=== PATIENT | male | born 1940 | race Caucasian/White ===

== ENCOUNTER → 2020-10-29 19:02 | Outpatient (ROUT) | payer MEDICARE, OTHER, SELFPAY ==
[2020-10-29 19:13] LABS: Add Manual Diff / Slide Review NO; Basophils Absolute Auto 0 /uL (0-100); Basophils Percent Auto 0.7 % (0-2); Eosinophils Absolute Auto 100 /uL (0-450); Eosinophils Percent Auto 1.4 % (2-4); Hematocrit 39.9 % (41-53); Hemoglobin 13.2 g/dL (13.5-17.5); Lymphocytes Absolute Auto 900 /uL (1100-4500); Lymphocytes Percent Auto 16.1 % (25-40); Mean Corpuscular HGB Conc 33.1 % (30-36); Mean Corpuscular Volume 84.6 fL (80-100); Monocytes Absolute Auto 400 /uL (0-900); Monocytes Percent Auto 6.6 % (3-14); Neutrophils Absolute Auto 4400 /uL (1500-7000); Neutrophils Percent Auto 75.2 % (50-75); Platelet Count 183 X10^3/uL (150-400); Red Blood Cell Count 4.71 X10^6/uL (4.5-5.9); Red Cell Distribution Width 13.2 % (11.6-14.8); White Blood Cell Count 5.8 X10^3/uL (4.5-11.0)
[2020-10-29 19:26] LABS: Hemoglobin A1C% w Est Avg Glu 5.7 % (4.0-6.0)
[2020-10-29 19:31] LABS: Alanine Aminotransferase 20 IU/L (<50); Albumin 4.2 g/dL (3.5-5.0); Albumin Globulin Ratio 1.8 (1.0-2.8); Alkaline Phosphatase 78 U/L (38-126); Aspartate Aminotransferase 27 IU/L (17-59); BUN Creatinine Ratio 18.1 (6-22); Bilirubin Total 0.4 mg/dL (0.2-1.3); Blood Urea Nitrogen 25 mg/dL (9-20); Carbon Dioxide 24 mmol/L (22-32); Chloride 104 mmol/L (98-107); Cholesterol 121 mg/dL (140-199); Estimated Glomerular Filt Rate 49.7 mL/min (>60); Globulin 2.4 g/dL (1.7-4.1); Glucose 164 mg/dL (80-110); HDL Cholesterol 80 mg/dL (40-60); LDL Cholesterol Calculated 22 mg/dL (<100); Potassium 4.4 mmol/L (3.4-5.1); Sodium 133 mmol/L (137-145); Total Protein 6.6 g/dL (6.3-8.2); Triglycerides 95 mg/dL (35-150)
[2020-10-29 19:32] LABS: HEMOLYSIS < 15 (0-50)
[2020-10-29 20:22] LABS: Prostate Specific Antigen 0.858 ng/mL (0.10-4.00)
== END ==
PROVIDERS: Family Provider Internal Medicine; PCP Internal Medicine; Visit Provider Internal Medicine
DX: N18.30 Chronic kidney disease, stage 3 unspecified (principal); R73.01 Impaired fasting glucose; E78.2 Mixed hyperlipidemia; N40.0 Benign prostatic hyperplasia without lower urinary tract symptoms
CPT/HCPCS: 80053; 80061; 83036; 84153; 85025

== ENCOUNTER → 2022-07-11 09:03 | Outpatient (CLI) | payer MEDICARE, OTHER, SELFPAY ==
--- NOTE | 2022-07-11 | DI.CT.S_ITS ---
PROCEDURE: CT SINUS SCREEN WO CON INDICATIONS: Other specified disorders of nose and nasal sinuses TECHNIQUE: Noncontrast 3.0 mm axial images acquired from the frontal sinuses to the mid-sella, with coronal and sagittal reformats. For radiation dose reduction, the following was used: automated exposure control, adjustment of mA and/or kV according to patient size. COMPARISON: [facility], CT, HEAD WITHOUT CONTRAST, 08/30/2011, 7:16. FINDINGS: Image quality: Excellent. Maxillary Sinuses: No bony remodeling or destruction. Mild to moderate mucosal thickening is seen within the inferior aspects of both maxillary sinuses. There is a mucous retention cyst also seen within the inferior left maxillary sinus. Ethmoid Air Cells: No bony remodeling or destruction. Scattered mild mucosal thickening is seen within the ethmoid air cells. Sphenoid Sinuses: No bony remodeling or destruction. Sinuses are clear. Frontal Sinuses: No bony remodeling or destruction. At least mild mucosal thickening is seen involving the inferomedial frontal sinuses. Ostiomeatal Complexes: Ostiomeatal complexes are patent, yet they are constitutionally narrowed. Solo cells are seen on the right. Miscellaneous: Visualized intra-orbital contents are normal. No travon bullosa or paradoxical turbinate curvature. There is mild S shaped nasal septal deviation. Elongated styloid processes are partially seen on both sides. IMPRESSION: Paranasal sinus disease is seen, which is most prominent within the inferior maxillary sinuses. Constitutionally narrowed ostiomeatal complexes are seen. There is mild S shaped nasal septal deviation. Elongated styloid processes are incidentally noted. Please consider [place] syndrome. Dictated by: Jung Tipton M.D. on 07/11/2022 at 10:09 Approved by: Jung Tipton M.D. on 07/11/2022 at 10:12
== END ==
PROVIDERS: Family Provider Internal Medicine; PCP Internal Medicine; Referring Provider Otolaryngology; Visit Provider Otolaryngology
DX: J32.4 Chronic pansinusitis (principal); J34.89 Other specified disorders of nose and nasal sinuses; R09.82 Postnasal drip; J34.2 Deviated nasal septum
CPT/HCPCS: 70486

== ENCOUNTER → 2022-07-20 11:59 | Outpatient (CLI) | payer MEDICARE, OTHER, SELFPAY ==
[2022-07-20 13:45] LABS: Prostate Specific Antigen 1.02 ng/mL (0.10-4.00)
== END ==
PROVIDERS: Family Provider Internal Medicine; PCP Internal Medicine; Referring Provider Urology; Visit Provider Urology
DX: Z71.1 Person with feared health complaint in whom no diagnosis is made (principal)
CPT/HCPCS: 36415; 84153

== ENCOUNTER → 2022-10-12 07:42 | Outpatient (CLI) | payer MEDICARE, OTHER, SELFPAY ==
--- NOTE | 2022-10-12 | DI.CT.S_ITS ---
PROCEDURE: CT SINUS SCREEN WO CON INDICATIONS: NASAL OBSTRUCTION/CHRONIC PANSINUSITIS/POST NASAL DRIP TECHNIQUE: Noncontrast 3.0 mm axial images acquired from the frontal sinuses to the mid-sella, with coronal and sagittal reformats. For radiation dose reduction, the following was used: automated exposure control, adjustment of mA and/or kV according to patient size. COMPARISON: [facility], CT, CT SINUS SCREEN WO [facility], 07/11/2022, 9:07. FINDINGS: Image quality: Excellent. Maxillary Sinuses: Moderate mucosal thickening is seen within the inferior maxillary sinuses, left worse than right. There is demineralization of the medial everett of the maxillary sinuses. Ethmoid Air Cells: Moderate mucosal thickening is seen within the ethmoid air cells, left worse than right. There is demineralization many ethmoid air cell bony septations. Sphenoid Sinuses: Minimal to mild mucosal thickening is seen in involving the anterior sphenoid sinuses. No significant bony remodeling or destruction can be seen. Frontal Sinuses: Frul-xs-gqyhjjth mucosal thickening can be seen involving the inferior medial frontal sinuses. No significant bony remodeling is seen. Ostiomeatal Complexes: The ostiomeatal complexes are constitutionally narrowed and are further highly narrowed by soft tissue thickening, left worse than right. The ostiomeatal complexes are highly demineralized. Miscellaneous: Visualized intra-orbital contents are normal. No travon bullosa or paradoxical turbinate curvature. Mild S shaped nasal septal deviation is seen. IMPRESSION: Widespread paranasal sinus disease is seen, which is clearly worse than on the prior CT. Areas bony demineralization can be seen, which are consistent with chronic sinusitis. The ostiomeatal complexes are nearly completely occluded by soft tissue thickening and are also demineralized. Dictated by: Jung Tipton M.D. on 10/12/2022 at 9:21 Approved by: Jung Tipton M.D. on 10/12/2022 at 9:25
== END ==
PROVIDERS: Family Provider Internal Medicine; PCP Internal Medicine; Referring Provider Otolaryngology; Visit Provider Otolaryngology
DX: J32.4 Chronic pansinusitis (principal); J34.89 Other specified disorders of nose and nasal sinuses; R09.82 Postnasal drip
CPT/HCPCS: 70486

== ENCOUNTER → 2022-12-04 10:17 | Outpatient (CLI) | payer MEDICARE, OTHER, SELFPAY ==
[2022-12-04 11:52] LABS: Hematocrit 39.5 % (41-53); Hemoglobin 13.2 g/dL (13.5-17.5); Mean Corpuscular HGB Conc 33.5 % (30-36); Mean Corpuscular Volume 83.6 fL (80-100); Platelet Count 165 X10^3/uL (150-400); Red Blood Cell Count 4.72 X10^6/uL (4.5-5.9); Red Cell Distribution Width 14.3 % (11.6-14.8); White Blood Cell Count 4.6 X10^3/uL (4.5-11.0)
[2022-12-04 12:07] LABS: Alanine Aminotransferase 27 IU/L (<50); Albumin 3.9 g/dL (3.5-5.0); Albumin Globulin Ratio 1.4 (1.0-2.8); Alkaline Phosphatase 77 U/L (38-126); Aspartate Aminotransferase 33 IU/L (17-59); BUN Creatinine Ratio 13.9 (6-22); Bilirubin Total 0.6 mg/dL (0.2-1.3); Blood Urea Nitrogen 21 mg/dL (9-20); Calcium 9.4 mg/dL (8.4-10.2); Carbon Dioxide 25 mmol/L (22-32); Chloride 108 mmol/L (98-107); Cholesterol 128 mg/dL (140-199); Estimated Glomerular Filt Rate 46 mL/min (>60); Globulin 2.8 g/dL (1.7-4.1); Glucose 97 mg/dL (80-110); HDL Cholesterol 75 mg/dL (40-60); HEMOLYSIS < 15 (0-50); LDL Cholesterol Calculated 44 mg/dL (<100); Potassium 4.8 mmol/L (3.4-5.1); Sodium 138 mmol/L (137-145); Total Protein 6.7 g/dL (6.3-8.2); Triglycerides 45 mg/dL (35-150)
[2022-12-04 12:41] LABS: TSH w/ Reflex to FT4 0.37 uIU/mL (0.47-4.68)
[2022-12-04 12:55] LABS: Vitamin B12 481 pg/mL (239-931)
[2022-12-05 02:36] LABS: Labcorp Hemoglobin (Hb) A1c 5.8 % (4.8-5.6)
[2022-12-07 15:51] LABS: Albumin 3.9 g/dL (2.9-4.4); Alpha-1-Globulin 0.2 g/dL (0.0-0.4); Alpha-2-Globulin 0.6 g/dL (0.4-1.0); Gamma Globulin 0.8 g/dL (0.4-1.8); Globulin Total 2.3 g/dL (2.2-3.9); Protein, Total 6.2 g/dL (6.0-8.5)
== END ==
PROVIDERS: Family Provider Internal Medicine; PCP Internal Medicine; Referring Provider Internal Medicine; Visit Provider Internal Medicine
DX: C49.9 Malignant neoplasm of connective and soft tissue, unspecified (principal); I10 Essential (primary) hypertension; E78.2 Mixed hyperlipidemia; E53.8 Deficiency of other specified B group vitamins; G62.9 Polyneuropathy, unspecified; R73.01 Impaired fasting glucose; R77.8 Other specified abnormalities of plasma proteins
CPT/HCPCS: 36415; 80053; 80061; 82607; 83036; 84155; 84165; 84439; 84443; 85027

== ENCOUNTER → 2022-12-11 15:43 | Outpatient (CLI) | payer MEDICARE, OTHER, SELFPAY ==
[2022-12-11 16:42] LABS: Prolactin 12.9 ng/mL (3.7-17.9)
[2022-12-11 16:45] LABS: Free T3, Triiodothyronine Free 2.53 pg/mL (2.77-5.27); Free T4, Direct Thyroxine 0.84 ng/dL (0.78-2.19)
[2022-12-11 16:59] LABS: Thyroid Stimulating Hormone 0.313 uIU/mL (0.47-4.68)
[2022-12-11 17:02] LABS: Follicle Stimulating Hormone 19.3 mIU/mL; Luteinizing Hormone 14.1 mIU/mL
[2022-12-13 07:09] LABS: Thyroid Peroxidase Antibodies <9 IU/mL (0-34)
== END ==
PROVIDERS: Family Provider Internal Medicine; PCP Internal Medicine; Referring Provider Internal Medicine; Visit Provider Internal Medicine
DX: R79.89 Other specified abnormal findings of blood chemistry (principal); E23.7 Disorder of pituitary gland, unspecified
CPT/HCPCS: 36415; 83001; 83002; 84146; 84439; 84443; 84481; 86376

== ENCOUNTER → 2023-06-04 09:27 | Outpatient (CLI) | payer MEDICARE, OTHER, SELFPAY ==
[2023-06-04 13:59] LABS: BUN Creatinine Ratio 16.9 (6-22); Blood Urea Nitrogen 26 mg/dL (9-20); Calcium 10.2 mg/dL (8.4-10.2); Carbon Dioxide 25 mmol/L (22-32); Chloride 106 mmol/L (98-107); Estimated Glomerular Filt Rate 45 mL/min (>60); Glucose 112 mg/dL (80-110); HEMOLYSIS < 15 (0-50); Sodium 140 mmol/L (137-145)
[2023-06-04 14:32] LABS: TSH w/ Reflex to FT4 0.49 uIU/mL (0.47-4.68)
== END ==
PROVIDERS: Family Provider Internal Medicine; PCP Internal Medicine; Referring Provider Internal Medicine; Visit Provider Internal Medicine
DX: R79.89 Other specified abnormal findings of blood chemistry (principal); N18.32 Chronic kidney disease, stage 3b
CPT/HCPCS: 36415; 80048; 84443

== ENCOUNTER → 2023-07-20 14:00 | Outpatient (CLI) | payer MEDICARE, OTHER, SELFPAY | PROVIDERS: Family Provider Internal Medicine; PCP Internal Medicine; Referring Provider Urology; Visit Provider Urology | DX: Z12.5 Encounter for screening for malignant neoplasm of prostate (principal) | CPT/HCPCS: 36415; G0103 ==

== ENCOUNTER → 2023-08-17 13:52 | Outpatient (CLI) | payer MEDICARE, OTHER, SELFPAY ==
--- NOTE | 2023-08-17 | DI.CT.S_ITS ---
PROCEDURE: CT SINUS SCREEN WO CON INDICATIONS: CHRONIC PANSINUSITIS/NASAL OBSTRUCTION/PND TECHNIQUE: Noncontrast 3.0 mm axial images acquired from the frontal sinuses to the mid-sella, with coronal and sagittal reformats. For radiation dose reduction, the following was used: automated exposure control, adjustment of mA and/or kV according to patient size. COMPARISON: [facility], CT, CT SINUS SCREEN WO CON, 10/12/2022, 7:45. FINDINGS: Image quality: Excellent. Maxillary Sinuses: Bilateral maxillary sinus mucosal thickening with small retention cyst in the left remains unchanged from the prior exam. No osseous remodeling. Both ostiomeatal units are patent6 Ethmoid Air Cells: No bony remodeling or destruction. Sinuses are clear. Sphenoid Sinuses: No bony remodeling or destruction. Sinuses are clear. Frontal Sinuses: Mucosal thickening in the frontal recesses resulting in obstruction again noted, stable. No remodeling Miscellaneous: Visualized intra-orbital contents are normal. No travon bullosa or paradoxical turbinate curvature. No nasal septal deviation. IMPRESSION: Stable unchanged bilateral maxillary and frontal sinus mucosal thickening. No remodeling. Approved by: Lamonte Buckner M.D. on 08/17/2023 at 13:53
== END ==
PROVIDERS: Family Provider Internal Medicine; PCP Internal Medicine; Referring Provider Otolaryngology; Visit Provider Otolaryngology
DX: J32.4 Chronic pansinusitis (principal); J34.89 Other specified disorders of nose and nasal sinuses; J34.3 Hypertrophy of nasal turbinates; R09.82 Postnasal drip
CPT/HCPCS: 70486

== ENCOUNTER → 2023-12-03 10:00 | Outpatient (CLI) | payer MEDICARE, OTHER, SELFPAY ==
[2023-12-03 14:16] LABS: Hematocrit 39.8 % (41-53); Hemoglobin 13.4 g/dL (13.5-17.5); Mean Corpuscular HGB Conc 33.6 % (30-36); Mean Corpuscular Hemoglobin 28.2 PG (26-34); Mean Corpuscular Volume 83.9 fL (80-100); Platelet Count 156 X10^3/uL (150-400); Red Blood Cell Count 4.75 X10^6/uL (4.5-5.9); Red Cell Distribution Width 14.5 % (11.6-14.8); White Blood Cell Count 5.3 X10^3/uL (4.5-11.0)
[2023-12-03 14:41] LABS: Alanine Aminotransferase 23 IU/L (<50); Albumin 4.4 g/dL (3.5-5.0); Albumin Globulin Ratio 1.8 (1.0-2.8); Alkaline Phosphatase 85 U/L (38-126); Aspartate Aminotransferase 32 IU/L (17-59); BUN Creatinine Ratio 19.5 (6-22); Bilirubin Total 0.6 mg/dL (0.2-1.3); Blood Urea Nitrogen 34 mg/dL (9-20); Calcium 9.8 mg/dL (8.4-10.2); Carbon Dioxide 20 mmol/L (22-32); Chloride 109 mmol/L (98-107); Cholesterol 128 mg/dL (140-199); Estimated Glomerular Filt Rate 39 mL/min (>60); Globulin 2.5 g/dL (1.7-4.1); Glucose 140 mg/dL (80-110); HDL Cholesterol 67 mg/dL (40-60); HEMOLYSIS < 15 (0-50); LDL Cholesterol Calculated 36 mg/dL (<100); Potassium 4.5 mmol/L (3.4-5.1); Sodium 137 mmol/L (137-145); Total Protein 6.9 g/dL (6.3-8.2); Triglycerides 125 mg/dL (35-150)
[2023-12-03 15:06] LABS: TSH w/ Reflex to FT4 0.45 uIU/mL (0.47-4.68)
[2023-12-03 15:35] LABS: Free T4, Direct Thyroxine 0.94 ng/dL (0.78-2.19)
== END ==
PROVIDERS: Family Provider Internal Medicine; PCP Internal Medicine; Referring Provider Internal Medicine; Visit Provider Internal Medicine
DX: I12.9 Hypertensive chronic kidney disease with stage 1 through stage 4 chronic kidney disease, or unspecified chronic kidney disease (principal); N18.32 Chronic kidney disease, stage 3b; I25.10 Atherosclerotic heart disease of native coronary artery without angina pectoris; I25.84 Coronary atherosclerosis due to calcified coronary lesion; R79.89 Other specified abnormal findings of blood chemistry
CPT/HCPCS: 36415; 80053; 80061; 84439; 84443; 85027

== ENCOUNTER → 2024-05-29 07:42 | Outpatient (CLI) | payer MEDICARE, OTHER, SELFPAY ==
--- NOTE | 2024-05-29 07:44 | DI.CT.S_ITS ---
PROCEDURE: CT SINUS SCREEN WO CON INDICATIONS: CHRONIC PANSINUSITIS,POSTNASAL DRIP TECHNIQUE: Noncontrast 3.0 mm axial images acquired from the frontal sinuses to the mid-sella, with coronal and sagittal reformats. For radiation dose reduction, the following was used: automated exposure control, adjustment of mA and/or kV according to patient size. COMPARISON: [facility], CT, CT SINUS SCREEN WO CON, 08/17/2023, 14:08. [facility], CT, CT SINUS SCREEN WO CON, 07/11/2022, 9:07. FINDINGS: Image quality: Excellent. Maxillary Sinuses: There is at least moderate right-sided and moderate left-sided mucosal thickening seen. There is demineralization of the superior medial everett of the maxillary sinuses. Ethmoid Air Cells: There is prominent mucosal thickening seen within the ethmoid air cells, particularly anteriorly. There is demineralization of the ethmoid air cell bony septations. Sphenoid Sinuses: There is moderate mucosal thickening seen on the right and there is mild mucosal thickening seen anteriorly on the left. No significant bony changes are seen. Frontal Sinuses: There is at least moderate left-sided and there is mild inferior medial right-sided mucosal thickening seen. Remodeling changes are seen, with mild thickening of the outer everett of the frontal sinuses. Ostiomeatal Complexes: The ostiomeatal complexes are completely opacified and they are demineralized. Miscellaneous: Visualized intra-orbital contents are normal. No travon bullosa or paradoxical turbinate curvature. There is [id number] S shaped nasal septal deviation. IMPRESSION: Widespread multifocal paranasal sinus disease is seen, which is clearly worse compared to the prior CT. The ostiomeatal complexes are completely opacified. Areas of bony demineralization are seen, which are consistent with chronic sinusitis. Dictated by: Jung Tipton M.D. on 05/29/2024 at 12:47 Approved by: Jung Tipton M.D. on 05/29/2024 at 12:50
== END ==
PROVIDERS: Family Provider Internal Medicine; PCP Internal Medicine; Referring Provider Otolaryngology; Visit Provider Otolaryngology
DX: J32.4 Chronic pansinusitis (principal); R09.82 Postnasal drip; R05.3 Chronic cough
CPT/HCPCS: 70486

== ENCOUNTER → 2024-06-16 08:29 | Outpatient (CLI) | payer MEDICARE, OTHER, SELFPAY ==
--- NOTE | 2024-06-16 08:30 | DI.RAD.S_ITS ---
PROCEDURE: XR CHEST 2V INDICATIONS: cough TECHNIQUE: 2 views of the chest were acquired. COMPARISON: [facility], , CHEST 2 VIEW, 11/10/2015, 14:41. FINDINGS: Surgical changes and devices: None. Lungs and pleura: Lungs are clear. Chronic left pleural thickening versus trace pleural effusion. Otherwise, no pleural effusions or pneumothorax. Mediastinum: Aortic arch calcifications. Mediastinal contours are otherwise normal. Heart size is normal. Bones and chest wall: No suspicious bony abnormalities. Soft tissues appear unremarkable. IMPRESSION: Chronic left pleural thickening versus trace pleural effusion. Otherwise, no acute cardiothoracic process. Dictated by: Chuy Nunes M.D. on 06/16/2024 at 13:09 Approved by: Chuy Nunes M.D. on 06/16/2024 at 13:10
== END ==
PROVIDERS: Family Provider Internal Medicine; PCP Internal Medicine; Referring Provider Internal Medicine; Visit Provider Internal Medicine
DX: J45.909 Unspecified asthma, uncomplicated (principal)
CPT/HCPCS: 71046

== ENCOUNTER → 2024-10-27 08:51 | Outpatient (CLI) | payer MEDICARE, OTHER, SELFPAY ==
[2024-10-27 10:26] LABS: Prostate Specific Antigen 0.748 ng/mL (0.10-4.00)
== END ==
PROVIDERS: Family Provider Internal Medicine; PCP Internal Medicine; Referring Provider Urology; Visit Provider Urology
DX: R97.20 Elevated prostate specific antigen [PSA] (principal)
CPT/HCPCS: 36415; 84153

== ENCOUNTER → 2024-12-04 13:28 | Outpatient (CLI) | payer MEDICARE, OTHER, SELFPAY ==
[2024-12-04 13:57] LABS: Hematocrit 36.8 % (41-53); Hemoglobin 12.5 g/dL (13.5-17.5); Mean Corpuscular HGB Conc 33.9 % (30-36); Mean Corpuscular Hemoglobin 28.5 PG (26-34); Platelet Count 183 X10^3/uL (150-400); Red Blood Cell Count 4.38 X10^6/uL (4.5-5.9); Red Cell Distribution Width 14.3 % (11.6-14.8); White Blood Cell Count 5.6 X10^3/uL (4.5-11.0)
[2024-12-04 14:19] LABS: Aspartate Aminotransferase 28 IU/L (17-59); BUN Creatinine Ratio 17.2 (6-22); Blood Urea Nitrogen 31 mg/dL (9-20); Calcium 9.9 mg/dL (8.4-10.2); Carbon Dioxide 22 mmol/L (22-32); Chloride 107 mmol/L (98-107); Cholesterol 115 mg/dL (140-199); Estimated Glomerular Filt Rate 37 mL/min (>60); Glucose 101 mg/dL (80-110); HDL Cholesterol 70 mg/dL (40-60); HEMOLYSIS < 15 (0-50); LDL Cholesterol Calculated 28 mg/dL (<100); Potassium 5.1 mmol/L (3.4-5.1); Sodium 137 mmol/L (137-145); Triglycerides 85 mg/dL (35-150)
[2024-12-04 14:34] LABS: Free T3, Triiodothyronine Free 3.44 pg/mL (2.77-5.27); Free T4, Direct Thyroxine 0.93 ng/dL (0.78-2.19); T4 Total Thyroxine 6.84 ug/dL (5.5-11.0)
[2024-12-04 14:47] LABS: Thyroid Stimulating Hormone 0.573 uIU/mL (0.47-4.68)
[2024-12-04 17:16] LABS: Creatinine Urine Random 152.55 mg/dL
[2024-12-04 17:20] LABS: Microalbumin Urine Random 1.6 mg/dL (0-1.6)
== END ==
PROVIDERS: Family Provider Internal Medicine; PCP Internal Medicine; Referring Provider Internal Medicine; Visit Provider Internal Medicine
DX: E03.8 Other specified hypothyroidism (principal); E78.2 Mixed hyperlipidemia; N18.32 Chronic kidney disease, stage 3b
CPT/HCPCS: 36415; 80048; 80061; 82043; 82570; 84436; 84439; 84443; 84450; 84481; 85027

== ENCOUNTER → 2025-01-19 13:57 | Outpatient (CLI) | payer MEDICARE, OTHER, SELFPAY | PROVIDERS: Family Provider Internal Medicine; PCP Internal Medicine; Referring Provider Internal Medicine; Visit Provider Internal Medicine | DX: J45.909 Unspecified asthma, uncomplicated (principal); Z87.891 Personal history of nicotine dependence; R94.2 Abnormal results of pulmonary function studies | CPT/HCPCS: 94060; 94726; 94729 ==

== ENCOUNTER → 2025-02-09 09:28 | Outpatient (CLI) | payer MEDICARE, OTHER, SELFPAY ==
--- NOTE | 2025-02-09 09:31 | DI.RAD.S_ITS ---
PROCEDURE: XR CHEST 2V INDICATIONS: productive cough TECHNIQUE: 2 views of the chest were acquired. COMPARISON: [facility], CR, XR CHEST 2V, 06/16/2024, 8:27. FINDINGS: Heart, mediastinum and pulmonary vascular: Heart is normal in size and configuration. Mediastinum is unremarkable. Pulmonary vascular is normal. Lungs: Moderate pneumonia in the posterior medial right lower lobe Pleural spaces: Normal-no effusions or pneumothorax. Bones and soft tissues: Normal IMPRESSION: Moderate pneumonia developing the posterior medial right lower lobe Dictated by: Tashi Newman M.D. on 02/10/2025 at 10:52 Approved by: Tashi Newman M.D. on 02/10/2025 at 10:53
== END ==
PROVIDERS: Family Provider Internal Medicine; PCP Internal Medicine; Referring Provider Internal Medicine; Visit Provider Internal Medicine
DX: J18.9 Pneumonia, unspecified organism (principal); R05.8 Other specified cough
CPT/HCPCS: 71046

== ENCOUNTER → 2025-03-10 11:08 | Outpatient (CLI) | payer MEDICARE, OTHER, SELFPAY ==
--- NOTE | 2025-03-10 11:11 | DI.RAD.S_ITS ---
PROCEDURE: XR CHEST 2V INDICATIONS: followup pneumonia TECHNIQUE: 2 views of the chest were acquired. COMPARISON: [facility], CR, XR CHEST 2V, 02/09/2025, 9:28. FINDINGS: Heart, mediastinum and pulmonary vascular: Heart is normal in size and configuration. Mediastinum is unremarkable. Pulmonary vascular is normal. Lungs: Small posterior right lower lobe infiltrate is improved Pleural spaces: Normal-no effusions or pneumothorax. Bones and soft tissues: Normal IMPRESSION: Small posterior right lower lobe infiltrate nearly resolved. Dictated by: Tashi Newman M.D. on 03/11/2025 at 13:21 Approved by: Tashi Newman M.D. on 03/11/2025 at 13:22
[2025-03-10 11:59] LABS: Hematocrit 41.7 % (41-53); Hemoglobin 13.9 g/dL (13.5-17.5); Mean Corpuscular HGB Conc 33.5 % (30-36); Mean Corpuscular Hemoglobin 27.9 PG (26-34); Mean Corpuscular Volume 83.4 fL (80-100); Platelet Count 159 X10^3/uL (150-400)
[2025-03-10 12:39] LABS: Blood Urea Nitrogen 25 mg/dL (9-20); Calcium 10.0 mg/dL (8.4-10.2); Carbon Dioxide 26 mmol/L (22-32); Chloride 107 mmol/L (98-107); Estimated Glomerular Filt Rate 38 mL/min (>60); Glucose 137 mg/dL (70-99); HEMOLYSIS < 15 (0-50); Potassium 4.6 mmol/L (3.4-5.1); Sodium 140 mmol/L (137-145)
[2025-03-10 13:13] LABS: Vitamin B12 Reflex MMA if <400 570 pg/mL (239-931)
[2025-03-12 06:40] LABS: Calcium 9.9 mg/dL (8.6-10.2); Parathyroid Hormone, Intact 59 pg/mL (15-65)
== END ==
PROVIDERS: PCP Internal Medicine; Referring Provider Internal Medicine; Visit Provider Urology
DX: J18.9 Pneumonia, unspecified organism (principal); E53.8 Deficiency of other specified B group vitamins; N18.32 Chronic kidney disease, stage 3b
CPT/HCPCS: 36415; 71046; 80048; 82310; 82607; 83970; 85027

== ENCOUNTER → 2025-06-08 12:07 | Outpatient (CLI) | payer MEDICARE, OTHER, SELFPAY ==
[2025-06-08 12:53] LABS: Influenza A - CEPHEID Flu A NEGATIVE (NEGATIVE); Influenza B - CEPHEID Flu B NEGATIVE (NEGATIVE)
[2025-06-08 12:54] LABS: COVID-19 CEPHEID 4-PLEX PCR Negative (Negative)
== END ==
PROVIDERS: PCP Internal Medicine; Visit Provider Internal Medicine
DX: J18.9 Pneumonia, unspecified organism (principal)
CPT/HCPCS: 87637

== ENCOUNTER → 2025-06-08 12:22 | Outpatient (CLI) | payer MEDICARE, OTHER, SELFPAY ==
--- NOTE | 2025-06-08 12:26 | DI.RAD.S_ITS ---
PROCEDURE: XR CHEST 2V INDICATIONS: cough TECHNIQUE: 2 views of the chest were acquired. COMPARISON: [facility], CR, XR CHEST 2V, 03/10/2025, 11:20. [facility], CR, XR CHEST 2V, 02/09/2025, 9:28. FINDINGS: Surgical changes and devices: None. Lungs and pleura: Hazy perihilar and bibasilar opacities . Mediastinum: Mediastinal contours are normal. Heart size is normal. Bones and chest wall: No suspicious bony abnormalities. Soft tissues appear unremarkable. IMPRESSION: Hazy perihilar and bibasilar opacities, concerning for aspiration. Differential includes atypical infection. Consider speech pathology referral. Recommend follow-up in 1-2 months with chest x-ray to ensure resolution. Dictated by: Aj Paz M.D. on 06/08/2025 at 14:35 Approved by: Aj Paz M.D. on 06/08/2025 at 14:35
== END ==
PROVIDERS: PCP Internal Medicine; Referring Provider Internal Medicine; Visit Provider Internal Medicine
DX: J18.9 Pneumonia, unspecified organism (principal); J45.909 Unspecified asthma, uncomplicated
CPT/HCPCS: 71046; 87637

== ENCOUNTER 2025-07-01 09:01 | Outpatient (RCR) | payer MEDICARE, OTHER, SELFPAY ==
--- NOTE | 2025-07-01 11:27 | ST.OPIE ---
Visit Care Team Role Provider Type Itz Long MD Attending Provider Physician Family Provider Primary Care Provider Referring Provider Specialty: Internal Medicine Address: [address] [place] [address], [id number] Email: [email or web address] Speech-Language Pathology Initial Evaluation [employer] Clinical Swallow Evaluation Start: 07/01/25 11:02 Freq: Status: Active Protocol: Document 07/01/25 11:02 SS (Rec: 07/01/25 11:27 SS [email or web address]) Clinical Swallow Evaluation Session Time Visit Start Time 09:05 Visit Stop Time 09:40 Total Visit Minutes 35 Visit Information Visit Number 1 Plan of Care Dates 07/01/25-09/30/25 Insurance Medicare Information Referral Referring Provider Dr. Itz Long Reason for Referral Concern for aspiration Setting Assessment Location Outpatient Care Visit Type Note Type Initial evaluation Next Note Type Next Note Type Treatment Note Patient Information Identification Type Name History Robin Bolden is an 85-year-old male, referred for a clinical swallow evaluation by Dr. Long to rule out silent aspiration, versus community-acquired from community exposures, in the presence of pneumonia. Pt denied overt s/sx of aspiration with PO intake. He stated food and liquid can be ?slow to go down?. When asked where he feels the pressure, he pointed to his chest. He stated liquid wash does help clear the sensation, though does not seem to clear it fully. Pt has a history of chronic sinusitis, allergic rhinitis, and most recently pneumonia. Chronic sinusitis was well controlled on inhaled budesonide and pt had undergone sinus surgery for enlarged turbinates about a year ago. Chest xray results on 06/08 as follows: ?hazy perihilar and bibasilar opacities, concerning for aspiration. Differential includes atypical infection. Consider speech pathology referral. Recommend follow-up in 1-2 months with chest x-ray to ensure resolution.? Pt denied a PMH of GERD or recent head/neck injury or surgery. He denied unintentional weight loss. Functional Oral Intake Scale (FOIS): FOIS level 7 = total oral intake with no restrictions. Subjective Pt arrived to the evaluation on time. He was engaged Observations and motivated throughout. Reported by Patient/Caregiver Pain/Discomfort Yes Location Chest Other Symptoms Food gets stuck,History of aspiration or pneumonia Current Diet Regular (IDDSI 7) Baseline Feeding Independent in self-feeding Method Type of Patient EAT-10 Questionnaire (e.g., EAT-10, MDADI, etc. ) Results The Eating Assessment Tool (EAT-10) was administered. This tool is a symptom-specific outcome instrument for dysphagia. It consists of ten statements regarding the patient?s swallow and the patient scores each on a scale of 0-4, with 0 indicating no problem and 4 indicating a severe problem. A score of >3/40 could indicate a swallowing impairment that warrants further assessment/treatment. The patient scored a 0/40. The IDDSI Framework Protocol: IDDSI.1 Objective Assessment Mental Status Alert,Responsive,Cooperative Oral Integrity WFL Dentition Within normal limits Lip Function Within normal limits Tongue Function Within normal limits Jaw Function Within normal limits Hard/Soft Palate Within normal limits Function Comment CRANIAL NERVE EXAM CN V (Trigeminal): intact b/l CN VII (Facial): intact b/l CN IX/X (Glossopharyngeal/Vagus): Unable to exclude CN X branch involvement 2/2 dysphonia CN XII (Hypoglossal): intact b/l Food and Liquid Trials Position During Upright (90 degrees) Assessment Liquids Trialed Thin (IDDSI 0) Solid Trials Purred (IDDSI 4),Soft & Bite-sized (IDDSI 6),Regular ( IDDSI 7) Oral Impairment Within normal limits Oral Phase Comments Pt observed across trials of thin liquids via cup and straw, puree, soft/bite sized, and regular solids. Pt exhibited adequate bolus retrieval and oral containment . Pt exhibited timely bolus manipulation and complete oral clearance. Pharyngeal Within normal limits Impairment Pharyngeal Phase Pt did not demonstrate overt s/sx of possible Comments pharyngeal dysphagia. No change to vocal quality following intake and no globus sensation reported. Pt reported he felt slow movement of the bolus, pointing to his chest. This is likely indicative of potential esophageal dysphagia, rather than a pharyngeal phase impairment. Fatigue/Endurance Endurance WNL [place] Swallow Yes Protocol Results The [place] Swallow Protocol is an evidence-based swallow screening protocol to determine aspiration risk. This tool has been validated across a number of different patient diagnoses and in a number of clinical settings. This is the only screening instrument that both identifies aspiration risk and, when passed, is able to recommend specific oral diets without the need for further instrumental dysphagia testing. Based upon research by Drs. Jackson Torres and Annmarie Garcia, this is a reliable and validated swallow screening protocol. Cognitive Screen: PASS Results with 3oz water test: PASS Results with cracker: PASS The IDDSI Framework Protocol: IDDSI.1 Findings Swallowing Function Other dysphagia Swallowing Function Suspect esophageal dysphagia given symptom presentation Comments . Severity of Swallow Within normal limits Impairment Comment Pt presents with within normal limits oral and pharyngeal phase swallowing function. Suspect esophageal impairment given pt report of slow clearing (points to chest), potentially indicative of esophageal dysmotility and slow esophageal clearance. As silent aspiration cannot be ruled out without further instrumental assessment, recommend pt complete a Modified Barium Swallow Study to rule out silent aspiration as the cause of PNA and ensure no obstruction of bolus flow through the pharyngoesophageal segment. Additionally, recommend GI given esophageal motility concerns and pulmonology/ENT follow-up to address further management of persistent productive cough and vocal hoarseness. Pt expressed understanding of assessment results and agreeable to recommendations. [employer] sent message to pt's PCP re: recommendations and provided handout with written recommendations to ensure understanding and recall. POC to be determined following completion of above referrals. Impact on Safety and No limitations Functioning Recommendations Instrumental Yes Assessment Swallowing Treatment Yes Frequency 1x/week (pending MBSS results) Duration 3 months Recommended Solids Regular (IDDSI 7) Recommended Liquids Thin (IDDSI 0) Medication As Tolerated Recommendations Referrals Recommended Gastroenterology,Otolaryngology/ENT,Pulmonology Referrals Education Patient/Caregiver Described results of evaluation,Patient expressed Education understanding of evaluation,Patient expressed agreement with goals & treatment plans Goals Short-term Goals Patient will complete MBSS to further evaluate swallowing pathophysiology and determine next steps in POC. Long-term Goals Patient will safely tolerate least restrictive diet consistency to allow for safe consumption of daily meals without s/sx of aspiration.
--- NOTE | 2025-07-01 11:28 | ST.OPPOC ---
Physical, Occupational & Speech Therapy At [facility] Visit Care Team Role Provider Type Itz Long MD Attending Provider Physician Family Provider Primary Care Provider Referring Provider Address: [address] [place] [address], [id number] Speech Pathology Plan of Care Plan of Care Dates 07/01/25-09/30/[address] Itz Long Patient History Robin Bolden is an 85-year-old male, referred for a clinical swallow evaluation by Dr. Long to rule out silent aspiration, versus community- acquired from community exposures, in the presence of pneumonia. Pt denied overt s/sx of aspiration with PO intake. He stated food and liquid can be ?slow to go down?. When asked where he feels the pressure, he pointed to his chest. He stated liquid wash does help clear the sensation, though does not seem to clear it fully. Pt has a history of chronic sinusitis, allergic rhinitis, and most recently pneumonia. Chronic sinusitis was well controlled on inhaled budesonide and pt had undergone sinus surgery for enlarged turbinates about a year ago. Chest xray results on 06/08 as follows: ?hazy perihilar and bibasilar opacities, concerning for aspiration. Differential includes atypical infection. Consider speech pathology referral. Recommend follow-up in 1-2 months with chest x- ray to ensure resolution.? Pt denied a PMH of GERD or recent head/neck injury or surgery. He denied unintentional weight loss. Functional Oral Intake Scale (FOIS): FOIS level 7 = total oral intake with no restrictions. Short-term Goals Patient will complete MBSS to further evaluate swallowing pathophysiology and determine next steps in POC. Long-term Goals Patient will safely tolerate least restrictive diet consistency to allow for safe consumption of daily meals without s/sx of aspiration. Comment: Electronically Signed by: ARVIND Adams 07/01/25 [id number] If you are in agreement with this Plan of Care, please return a signed and dated copy. I have reviewed this Plan of Care and certify that the skilled therapy services above are required to meet the patient?s needs. Physician Signature Date Printed Name and Credentials Clinical Instructor Signature Printed Name and Credentials
--- NOTE | 2025-08-18 11:07 | ST.OPDS ---
Visit Care Team Role Provider Type Itz Long MD Attending Provider Physician Family Provider Primary Care Provider Referring Provider Address: [address] [place] [address], [id number] MBSS completed on 07/21 with pt demonstrating WNL oral and pharyngeal phases. GI referral was recommended d/t esophageal phase dysphagia. Pt account discharged at this time.
== END 2025-08-19 11:14 | disposition home or self-care (01) ==
LOC: SP 09:01
PROVIDERS: Family Provider Internal Medicine; PCP Internal Medicine; Referring Provider Internal Medicine; Visit Provider Internal Medicine
DX: T17.908D Unspecified foreign body in respiratory tract, part unspecified causing other injury, subsequent encounter (principal)
CPT/HCPCS: 92610

== ENCOUNTER → 2025-07-21 08:45 | Outpatient (CLI) | payer MEDICARE, OTHER, SELFPAY ==
--- NOTE | 2025-07-21 11:58 | ST.SWALLOW ---
Visit Care Team Role Provider Type Itz Long MD Attending Provider Physician Family Provider Primary Care Provider Referring Provider Specialty: Internal Medicine Address: [address] [place] [address], [facility] Email: [email or web address] Modified Barium Swallow Study [employer] Modified Barium Swallow Study Start: 07/21/25 09:49 Freq: Status: Active Protocol: Document 07/21/25 09:50 LNK (Rec: 07/21/25 11:48 LNK Desktop) Modified Barium Swallow Study Total Time Visit Start Time 09:00 Visit Stop Time 09:45 Total Visit Minutes [address] Long Reason for Referral dysphagia; hx PNA Setting Setting Outpatient Care Patient Information Identification Type Name,Date of Patient History Pt was seen for a Modified Barium Swallow Study due to concern for silent aspiration. Pt was referred by Dr. Long to rule out silent aspiration, versus community- acquired from community exposures, in the presence of pneumonia. Pt denied overt s/sx of aspiration with PO intake. pt described no difficulty swallowing foods, liquids or medications. He did note that large pills (i .e., supplements: calcium, etc.) were difficult at times. Pt denied neurological diagnosis, history of GERD and head/neck injury/surgery. Pt was recently diagnosed with PNA. Chest x-ray indicated hazy perihilar and bibasilar opacities concerning for aspiration...Consider speech pathology referral. Subjective Pt was seated in the flouroscopy chair with directions Observations and procedures explained for him. He indicated he understood and agreed to proceed. Patient Positioning Position View Lat-A/P Imaging Lateral View Textures Administered Trials Presented Thin Liquid via Spoon (IDDSI 0),Thin Liquid via Cup ( IDDSI 0),Extremely Thick Liquid via Spoon (IDDSI 4), Soft & Bite-sized (IDDSI,Regular (IDDSI 7) Barium Tablet Yes The IDDSI Framework Protocol: IDDSI.1 Oral Impairment Source: The Modified Barium Swallow Impairment Profile (MBSImP??) Lip Closure No labial escape Tongue Control Cohesive bolus between tongue to palatal seal During Bolus Hold Bolus Preparation/ Timely & efficient chewing & mashing Mastication Bolus Transport/ Delayed initiation of tongue motion Lingual Motion Oral Residue Residue collection on oral structures Location Tongue Initiation of Bolus head at posterior laryngeal surface of epiglottis Pharyngeal Swallow Additional Oral *OME and DKS were observed to be WNL. Impairment *Dentition natural and in good hygiene Observations *Mastication observed with rotary chew pattern. *Good bolus formation, control and AP transition. *Velopharyngeal closure was WNL. Oral phase of swallow WNL Pharyngeal Impairment Source: The Modified Barium Swallow Impairment Profile (MBSImP??) Soft Palate No bolus between soft palate & pharyngeal wall Elevation Laryngeal Elevation Part.sup.move.thyroid cart/part.approx.arytenoids to epiglot.petiole Anterior Hyoid No anterior movement Excursion Epiglottic Movement Complete inversion Laryngeal Vestibular Complete; no air/contrast in laryngeal vestibule Closure Pharyngeal Stripping Present - complete Wave Pharyngoesophageal Complete distention & complete duration; no obstruction Segment Opening of flow Tongue Base Trace column of contrast/air betwn tongue base & post. Retraction pharyngeal wall Pharyngeal Residue Collection of residue within/on pharyngeal structures Location Diffuse (>3 areas) Additional *Reduced laryngeal elevation and hyoid movement Pharyngeal observed Impairment *Epiglottic inversion good with good protection of the Observations airway *Tongue base retraction was mildly reduced resulting in trace residue. *Pharyngeal stripping wave and cricopharyngeal opening appeared adequate and did not appear to impede bolus flow. *Post-swallow residue was mild primarily at the base of tongue, posterior pharyngeal wall, vallecula and pyriform sinuses across trials. Pt did sensate to residue and independently cleared subsequent dry swallows. *No laryngeal penetration or aspiration was observed. *Pharyngeal phase appeared to be WFL for pt's age. A/P View Textures Administered Trials Presented Thin Liquid via Cup (IDDSI 0),Moderately Thick Liquid via Straw (IDDSI 3),Extremely Thick Liquid via Straw ( IDDSI 4) The IDDSI Framework Protocol: IDDSI.1 A/P View Observations Pharyngeal Unilateral bulging Contraction Esophageal Clearance Esophageal retention w/regtrograde flow below Upright Position pharyngoesoph segment Vocal Fold Function Good Esophageal Function Slowed Clearing,Reverse Peristalsis,Narrowing Additional A-P AP trials: thin liquid/barium, extremely thick barium, Observations cookie with barium, calibrated barium tablet *Unilateral pharyngeal contraction indicating reduced strength *Esophageal retention with retro-flow observed; pt describing a sensation of pressure/sticking/ slow clearance. *Small hiatal hernia noted Clinical Impressions Dysphagia Type Esophageal Findings *The pt demonstrated oral and pharyngeal swallow phases to be WNL/WFL re: pt's age *Esophageal phase of swallow noted mild esophageal retention, slowed clearance, retro-flow of contents below the vocal folds. Given time, the esophageal contents were observed to clear to the stomach *A small hiatal hernia was noted *NO laryngeal penetration observed *No tracheal aspiration observed The results and recommendations of the MBSS were described to the pt while observing still pictures taken during the MBSS. Pt expressed appreciation and indicated she understood. All pt questions were addressed. Patient Appropriate No for Therapy Recommendations
== END ==
PROVIDERS: Family Provider Internal Medicine; PCP Internal Medicine; Referring Provider Internal Medicine; Visit Provider Internal Medicine
DX: J69.0 Pneumonitis due to inhalation of food and vomit (principal); T17.908A Unspecified foreign body in respiratory tract, part unspecified causing other injury, initial encounter
CPT/HCPCS: 74230; 92611

== ENCOUNTER → 2025-07-23 15:50 | Outpatient (CLI) | payer MEDICARE, OTHER, SELFPAY | PROVIDERS: Family Provider Internal Medicine; PCP Internal Medicine; Referring Provider Internal Medicine; Visit Provider Internal Medicine | DX: J45.40 Moderate persistent asthma, uncomplicated (principal); J41.1 Mucopurulent chronic bronchitis; J18.9 Pneumonia, unspecified organism; J32.9 Chronic sinusitis, unspecified; J30.89 Other allergic rhinitis | CPT/HCPCS: 87070; 87205 ==

== ENCOUNTER → 2025-08-10 13:41 | Outpatient (CLI) | payer MEDICARE, OTHER, SELFPAY ==
--- NOTE | 2025-08-10 13:44 | DI.CT.S_ITS ---
PROCEDURE: CT CHEST HIGH RESOLUTION INDICATIONS: rule out Bronchiectasis TECHNIQUE: Noncontrast 1.0 and 5.0 mm thick contiguous axial sections from the pulmonary apex to the posterior costophrenic angles, with 7 mm thick coronal and sagittal MIP reformats. 1 mm thick dynamic expiratory images acquired through the upper, mid, and lower lungs. 1.0 mm thick axial sections acquired from the jonelle to the posterior costophrenic angles in the prone end-inspiration position. For radiation dose reduction, the following was used: automated exposure control, adjustment of mA and/or kV according to patient size. COMPARISON: None. FINDINGS: Image quality: Diagnostic. Lower Neck: No enlarged lymph nodes. Thyroid: No thyroid nodules which require sonographic follow up, per consensus guidelines. Axillae: No enlarged lymph nodes. Chest Wall: Unremarkable. Bones: Unremarkable. Lungs and Pleura: Basilar predominant, dependent bronchiectasis. There are extensive tree-in-bud nodules in the dependent lungs, most prominent in the right lower lobe. Heart: Heart size is normal. No pericardial effusion. Bulky LAD calcifications. Thoracic Vessels: The aorta and pulmonary arteries demonstrate normal size. Mediastinum and Kalyani: No enlarged lymph nodes. Esophagus: No wall thickening. No hiatal hernia. Upper Abdomen: Visualized upper abdomen solid organs and bowel loops appear normal. IMPRESSION: Dependent bronchiectasis. Superimposed dependent tree-in-bud nodules raise a concern for acute on chronic aspiration. Correlate with risk factors and consider speech pathology referral. Dictated by: Aj Paz M.D. on 08/11/2025 at 10:23 Approved by: Aj Paz M.D. on 08/11/2025 at 10:28
== END ==
PROVIDERS: Family Provider Internal Medicine; PCP Internal Medicine; Referring Provider Internal Medicine; Visit Provider Internal Medicine
DX: J32.9 Chronic sinusitis, unspecified (principal); J47.9 Bronchiectasis, uncomplicated; R06.00 Dyspnea, unspecified; R06.02 Shortness of breath; R05.3 Chronic cough
CPT/HCPCS: 71250